=== PATIENT | female | born 1995 | race African-American/Black ===

== ENCOUNTER 2022-09-13 21:52 | Emergency (ER) | payer SELFPAY ==
[~2022-09-13] VITALS: Ht 170.2 cm; Wt 113.4 kg
[2022-09-13 22:28] VITALS: BP 117/61
--- NOTE | 2022-09-14 03:52 | NUR ---
PT CALLED FROM INSIDE LOBBY AND OUTSIDE NO RESPONSE
--- NOTE | 2022-09-14 04:05 | NUR ---
PT CALLED IN LOBBY AND OUTSIDE WITH NO ANSWER. PT LWBS
== END 2022-09-14 04:05 | disposition left against medical advice (07) ==
LOC: MED 21:52
DX: R51.9 Headache, unspecified (principal); Z53.21 Procedure and treatment not carried out due to patient leaving prior to being seen by health care provider
CPT/HCPCS: 99281